=== PATIENT | female | born 1950 ===

== ENCOUNTER 2016-10-13 19:37 | Observation (INO) | payer MEDICARE, MEDICAID ==
[2016-10-13] MEDS ORDERED: Albuterol-Ipratrop 3 mg / 0.5 (3 ml) UD IH STA (20:03)
[2016-10-13] MEDS ORDERED: Oxycodone/Acetaminophen 5/325 mg Tab PO STA (20:03)
--- NOTE | 2016-10-13 20:15 | ED PDOC ---
Arrival/HPI <Héctor Gallo - Last Filed: 10/14/16 00:09> - General Historian: Patient - History of Present Illness Time/Duration: Prior to Arrival Symptom Onset: Sudden Symptom Course: Unchanged Context: Home <Tyesha Dominguez - Last Filed: 10/14/16 19:14> - General Chief Complaint: Respiratory Distress Time Seen by Provider: 10/13/16 19:38 - History of Present Illness Narrative History of Present Illness (Text): 10/13/16 20:08 66 yo female with PMH of asthma, HTN, ESRD on HD (M,W,F), DM, and CAD s/p bypass presented to ED with SOB. She states that her SOB started yesterday and occurs at rest. She states that previous episodes of SOB have been due to fluid overload when to little fluid was removed during HD. Patient also reports dry , mild cough and sore throat. She also reports chronic back pain and pain in bilateral legs due to diabetic neuropathy. She denies headache, fevers, chest pain, abd pain, n/v/d/c, no urinary symptoms. PMD: Dr. Milton (Tyesha Dominguez) Past Medical History - Provider Review Nursing Documentation Reviewed: Yes - Infectious Disease Hx of Infectious Diseases: None - Tetanus Immunization Tetanus Immunization: Unknown - Cardiac Hx Cardiac Disorders: Yes (cabg, dvt) Hx Congestive Heart Failure: Yes Hx Hypertension: Yes - Pulmonary Hx Chronic Obstructive Pulmonary Disease (COPD): Yes - Neurological HX Cerebrovascular Accident: Yes - HEENT Hx HEENT Disorder: No - Renal Hx Renal Failure: Yes - Endocrine/Metabolic Hx Diabetes Mellitus Type 2: Yes - Hematological/Oncological Hx Blood Disorders: Yes Hx Anemia: Yes - Integumentary Other/Comment: cellulitis right heel, [id number] x4cm open heel wound foul smelling drainage, wound bed red surrounded by brown dry discolored skin covered with silvacell, dry 2cm x 2cm scab, multiple eccymotic areas. to abd + 3 edema to ble as per prior hx, dressing to left heel skin reddened, r foot discolored dry flakey skin - Musculoskeletal/Rheumatological Hx Falls: Yes - Gastrointestinal Hx Gastrointestinal Disorders: Yes Hx Gastroesophageal Reflux: Yes - Genitourinary/Gynecological Hx Genitourinary Disorders: Yes (oliguria) Hx Incontinence: Yes - Psychiatric Hx Psychophysiologic Disorder: No Hx Substance Use: No - Surgical History Hx Appendectomy: Yes Hx Cholecystectomy: Yes Hx Open Heart Surgery: Yes - Anesthesia Hx Anesthesia: Yes Hx Anesthesia Reactions: No Hx Malignant Hyperthermia: No - Suicidal Assessment Feels Threatened In Home Enviroment: No <Tyesha Dominguez - Last Filed: 10/14/16 19:14> Family/Social History - Physician Review Nursing Documentation Reviewed: Yes Family/Social History: No Known Family HX Smoking Status: Former Smoker Hx Alcohol Use: No Hx Substance Use: No Hx Substance Use Treatment: No <Tyesha Dominguez - Last Filed: 10/14/16 19:14> Allergies/Home Meds <Héctor Gallo - Last Filed: 10/14/16 00:09> <Sharif Domingueziha - Last Filed: 10/14/16 19:14> Allergies/Adverse Reactions: Allergies Penicillins Allergy (Verified 11/13/15 06:20) hives Home Medications: Home Meds Medication Instructions Recorded Confirmed D-Methorphan/PE/Acetaminophen 2 tab PO Q6 PRN 10/13/16 10/13/16 [Mapap Cold Formula Caplet] Gabapentin [Neurontin] 100 mg PO BID 10/13/16 10/13/16 Ibuprofen [Motrin Tab] 400 mg PO Q6 PRN 10/13/16 10/13/16 Insulin Detemir [Levemir] 20 units SC BID 10/13/16 10/13/16 Metoprolol Tartrate [Lopressor] 25 mg PO DAILY 10/13/16 10/13/16 Sevelamer Carbonate [Renvela] 800 mg PO TID 10/13/16 10/13/16 predniSONE [predniSONE Tab] 20 mg PO DAILY 10/13/16 10/13/16 Review of Systems - Review of Systems Constitutional: Normal. absent: Fatigue, Fevers Eyes: Normal. absent: Vision Changes ENT: Sore Throat. absent: Rhinorrhea, Sinus Congestion Respiratory: SOB, Cough Cardiovascular: Normal. absent: Chest Pain, Edema, Calf Pain, Syncope Gastrointestinal: Normal. absent: Abdominal Pain, Constipation, Diarrhea, Nausea, Vomiting Genitourinary Female: Normal, Other (decrease urination due to ESRD). absent: Dysuria, Frequency Musculoskeletal: Arthralgias, Back Pain. absent: Myalgias Skin: Normal. absent: Rash, Pruritis, Laceration Neurological: Normal. absent: Headache, Dizziness Endocrine: Normal. absent: Diaphoresis Hemo/Lymphatic: Normal. absent: Easy Bleeding, Easy Bruising Psychiatric: Normal <Tyesha Dominguez - Last Filed: 10/14/16 19:14> Physical Exam Vital Signs Reviewed: Yes Temperature: Afebrile Blood Pressure: Hypertensive Pulse: Regular Respiratory Rate: Normal Appearance: Positive for: Well-Appearing, Non-Toxic, Comfortable Pain Distress: None Mental Status: Positive for: Alert and Oriented X 3 <Héctor Gallo - Last Filed: 10/14/16 00:09> - Systems Exam Head: Present: Atraumatic, Normocephalic. No: Abrasion, Laceration Pupils: Present: PERRL. No: Non-Reactive, Pinpoint Extroacular Muscles: Present: EOMI. No: Gaze Palsy, Entrapment Conjunctiva: Present: Normal Mouth: Present: Moist Mucous Membranes Pharnyx: Present: Normal. No: ERYTHEMA, EXUDATE, TONSILS ENLARGED Neck: Present: Normal Range of Motion Respiratory/Chest: Present: Clear to Auscultation, Good Air Exchange, Wheezes, Tachypneic. No: Respiratory Distress, Accessory Muscle Use, Rales, Rhonchi Cardiovascular: Present: Regular Rate and Rhythm, Normal S1, S2. No: Murmurs, Tachycardic, Bradycardic Abdomen: Present: Normal Bowel Sounds. No: Tenderness, Distention, Peritoneal Signs Back: Present: Paraspinal Tenderness Upper Extremity: Present: Normal Inspection, NORMAL PULSES. No: Cyanosis, Edema , Tenderness, Swelling Lower Extremity: Present: Normal Inspection. No: Edema, CALF TENDERNESS, Tenderness Neurological: Present: GCS=15, CN II-XII Intact, Speech Normal Skin: Present: Warm, Dry, Normal Color. No: Rashes, Diaphoretic, Hot, Cold, Pale Psychiatric: Present: Alert, Oriented x 3, Normal Insight, Normal Concentration <Tyesha Dominguez - Last Filed: 10/14/16 19:14> Vital Signs Temp Pulse Resp BP Pulse Ox 10/14/16 06:59 98 F 71 18 130/68 10/14/16 05:45 71 16 130/68 99 10/14/16 03:39 77 16 133/63 99 10/14/16 00:43 80 14 150/84 100 10/13/16 21:40 85 20 169/79 H 100 10/13/16 20:01 99 10/13/16 19:46 98.1 F 80 26 H 181/76 H 97 Medical Decision Making <Héctor Gallo - Last Filed: 10/14/16 00:09> <Tyesha Dominguez - Last Filed: 10/14/16 19:14> ED Course and Treatment: 10/13/16 21:29 Patient Seen With Resident: In agreement with resident note which contains more details about the patient. Patient was seen and evaluated with resident. Came up with plan and treatment together. Patient is a 66 year old female who presents to the emergency department for evaluation of shortness of breath. Addition HPI details as noted by resident. Labs, EKG, Chest X-ray ordered to r/o asthma exacerbation vs. CHF exacerbation. Duoneb and Percocet given for symptomatic control. 10/14/16 00:04 Case discussed with , who is aware and agrees with the plan to observe patient at telemetry for asthma. Accepts patient under service. ( Héctor Gallo) 10/13/16 20:18 Impression: 66 yo female with PMH of asthma, HTN, ESRD on HD (M,W,F), DM, and CAD s/p bypass presented to ED with SOB. Differential diagnoses includes but not limited to: - asthma exacerbation, CHF exacerbation Plan: - CBC, CMP - EKG - CXR - duoneb - percocet - Patient received solu-medrol and 1 duoneb treatment in route by EMS. She states her breathing has improved mildly. (Tyesha Dominguez) - Lab Interpretations Lab Results: 10/13/16 22:20 10/13/16 22:20 Lab Results 10/13/16 22:20: Sodium 137, Potassium 5.6 H*, Chloride 96 L, Carbon Dioxide 28, Anion Gap 19, BUN 35 H, Creatinine 5.8 H, Est GFR ( Amer) 9, Est GFR (Non -Af Amer) 7, Random Glucose 254 H, Calcium 9.6, Total Bilirubin 1.6 H, AST 35, ALT 26, Alkaline Phosphatase 56, Lactate Dehydrogenase 1014 H, Total Creatine Kinase 71, Troponin I 0.04 D, Total Protein 7.8, Albumin 4.2, Globulin 3.5, Albumin/Globulin Ratio 1.2 10/13/16 22:20: WBC 9.3, RBC 4.03, Hgb 11.9 L, Hct 35.9 L, MCV 89.1, MCH 29.5, MCHC 33.1, RDW 14.9 H, Plt Count 155, MPV 10.7, Neutrophils % (Manual) 87 H, Band Neutrophils % 4 H, Lymphocytes % (Manual) 8 L, Monocytes % (Manual) 1, Platelet Evaluation Normal - RAD Interpretation Radiology Orders: 10/13/16 20:03 CHEST PORTABLE [RAD] Stat - Medication Orders Current Medication Orders: Albuterol/Ipratropium (Duoneb 3 Mg/0.5 Mg (3 Ml) Ud) 3 ml IH Q4H PRN PRN Reason: Shortness of Breath Oxycodone/Acetaminophen (Percocet 5/325 Mg Tab) 1 tab PO Q4H PRN PRN Reason: Pain, moderate (4-7) Stop: 10/16/16 23:46 Vitamin B Complex/Vit C/Folic Acid (Nephro-Gabe) 1 tab PO 0800 JOSE Discontinued Medications Albuterol/Ipratropium (Duoneb 3 Mg/0.5 Mg (3 Ml) Ud) 3 ml IH Q15M STA Stop: 10/13/16 20:04 Last Admin: 10/13/16 20:40 Dose: 3 ml Oxycodone/Acetaminophen (Percocet 5/325 Mg Tab) 1 tab PO STAT STA Stop: 10/13/16 20:04 Last Admin: 10/13/16 20:42 Dose: 1 tab Re-Assess: ABHI Pain Assessment Document 10/13/16 21:42 HD (Rec: 10/14/16 07:36 HD [id number]) Pain Reassessment Is this a pain reassessment? Yes Sleep Is patient sleeping during reassessment? No Presence of Pain Presence of Pain No - PA / GERIATRIC NURSE / Resident Statement /DO has reviewed & agrees with the documentation as recorded. /DO has examined the patient and agrees with the treatment plan. <Héctor Gallo - Last Filed: 10/14/16 00:09> <Tyesha Dominguez - Last Filed: 10/14/16 19:14> - Scribe Statement [place] Rice Provider Alirio Attestation: All medical record entries made by the Tatyanaibe were at my direction and personally dictated by me. I have reviewed the chart and agree that the record accurately reflects my personal performance of the history, physical exam, medical decision making, and the department course for this patient. I have also personally directed, reviewed, and agree with the discharge instructions and disposition. (Héctor Gallo) Disposition/Present on Arrival <Héctor Gallo - Last Filed: 10/14/16 00:09> - Present on Arrival Any Indicators Present on Arrival: Yes History of DVT/PE: No History of Uncontrolled Diabetes: Yes Urinary Catheter: No History of Decub. Ulcer: No History Surgical Site Infection Following: None - Disposition Have Diagnosis and Disposition been Completed?: Yes Disposition Time: 23:44 Patient Plan: Admission <Tyesha Dominguez - Last Filed: 10/14/16 19:14> - Disposition Diagnosis: Asthma exacerbation Disposition: HOSPITALIZED Condition: FAIR
[2016-10-13 22:40] LABS: HEMATOCRIT 35.9 % (36.0-48.0); MEAN CELL VOLUME 89.1 fL (80.0-105.0); MEAN CORPUSCULAR HEMOGLOBIN 29.5 pg (25.0-35.0); MEAN CORPUSCULAR HGB CONC 33.1 g/dl (31.0-37.0); MEAN PLATELET VOLUME 10.7 fl (7.0-11.0); PLATELET COUNT 155 10^3/uL (120.0-450.0); RED CELL DISTRIBUTION WIDTH 14.9 % (11.5-14.5); WHITE BLOOD COUNT 9.3 10^3/ul (4.5-11.0)
[2016-10-13 22:57] LABS: ALB/GLOB RATIO 1.2 (1.1-1.8); BILIRUBIN,TOTAL 1.6 mg/dL (0.2-1.3); CALCIUM 9.6 mg/dL (8.4-10.5); TOTAL PROTEIN 7.8 g/dL (5.8-8.3)
[2016-10-13 23:08] LABS: TROPONIN I 0.04 ng/mL
[2016-10-13 23:10] LABS: ADD MANUAL DIFF? YES
[2016-10-13 23:14] LABS: POTASSIUM 5.6 mmol/L (3.6-5.0)
[2016-10-13 23:24] LABS: BAND 4 % (0-2); NEUTROPHIL 87 % (50.0-70.0); PLATELET ESTIMATE NORMAL (NORMAL)
[2016-10-13] MEDS ORDERED: Oxycodone/Acetaminophen 5/325 mg Tab PO PRN (23:45)
[2016-10-13] MEDS ORDERED: Albuterol-Ipratrop 3 mg / 0.5 (3 ml) UD IH PRN (23:45)
[2016-10-14 03:40] VITALS: O2SAT 99
[2016-10-14 05:46] VITALS: BP 130/68; PULSE 71
--- NOTE | 2016-10-14 09:39 | RAD ---
HISTORY: Shortness of breath COMPARISON: 04/26/2016 FINDINGS: LUNGS: There is interval improved aeration in both lungs with residual mild pulmonary venous congestion and interstitial pulmonary edema. PLEURA: No large pleural effusion. Small left pleural effusion, likely loculated. CARDIOVASCULAR: There is persistent moderate cardiomegaly. Status post CABG. OSSEOUS STRUCTURES: No significant abnormalities. VISUALIZED UPPER ABDOMEN: Normal. OTHER FINDINGS: None. IMPRESSION: 1. Interval improved aeration in both lungs with mild residual pulmonary venous congestion and interstitial pulmonary edema. 2. Small left pleural effusion, likely loculated. 3. Moderate cardiomegaly.
--- NOTE | 2016-10-14 11:52 | CP.PCM.CON ---
History of Present Illness - History of Present Illness History of Present Illness: nephrology note covering for Dr Suh She was seen and examined plan for HD today as ordered Past Patient History - Infectious Disease Hx of Infectious Diseases: None - Tetanus Immunizations Tetanus Immunization: Unknown - Past Medical History & Family History Past Medical History?: Yes - Past Social History Smoking Status: Former Smoker - CARDIAC Hx Cardiac Disorders: Yes (cabg, dvt) Hx Congestive Heart Failure: Yes Hx Hypertension: Yes - PULMONARY Hx Chronic Obstructive Pulmonary Disease (COPD): Yes - NEUROLOGICAL HX Cerebrovascular Accident: Yes - HEENT Hx HEENT Problems: No - RENAL Hx Renal Failure: Yes - ENDOCRINE/METABOLIC Hx Diabetes Mellitus Type 2: Yes - HEMATOLOGICAL/ONCOLOGICAL Hx Blood Disorders: Yes Hx Anemia: Yes - INTEGUMENTARY Other/Comment: cellulitis right heel, [id number] x4cm open heel wound foul smelling drainage, wound bed red surrounded by brown dry discolored skin covered with silvacell, dry 2cm x 2cm scab, multiple eccymotic areas. to abd + 3 edema to ble as per prior hx, dressing to left heel skin reddened, r foot discolored dry flakey skin - MUSCULOSKELETAL/RHEUMATOLOGICAL Hx Falls: Yes - GASTROINTESTINAL Hx Gastrointestinal Disorders: Yes Hx Gastroesophageal Reflux: Yes - GENITOURINARY/GYNECOLOGICAL Hx Genitourinary Disorders: Yes (oliguria) Hx Incontinence: Yes - PSYCHIATRIC Hx Psychophysiologic Disorder: No Hx Substance Use: No - SURGICAL HISTORY Hx Appendectomy: Yes Hx Cholecystectomy: Yes Hx Open Heart Surgery: Yes - ANESTHESIA Hx Anesthesia: Yes Hx Anesthesia Reactions: No Hx Malignant Hyperthermia: No Meds Allergies/Adverse Reactions: Allergies Allergy/AdvReac Type Severity Reaction Status Date / Time Penicillins Allergy hives Verified 11/13/15 06:20 - Medications Medications: Current Medications Albuterol/Ipratropium (Duoneb 3 Mg/0.5 Mg (3 Ml) Ud) 3 ml IH Q4H PRN PRN Reason: Shortness of Breath Oxycodone/Acetaminophen (Percocet 5/325 Mg Tab) 1 tab PO Q4H PRN PRN Reason: Pain, moderate (4-7) Stop: 10/16/16 23:46 Vitamin B Complex/Vit C/Folic Acid (Nephro-Gabe) 1 tab PO 0800 JOSE Results - Vital Signs Recent Vital Signs: Last Vital Signs Temp 98.1 F 10/13/16 19:46 Pulse 71 10/14/16 05:45 Resp 16 10/14/16 05:45 BP 130/68 10/14/16 05:45 Pulse Ox 99 10/14/16 05:45 - Labs Result Diagrams: 10/13/16 22:20 10/13/16 22:20
[2016-10-14 15:18] LABS: HEMATOCRIT 31.8 % (36.0-48.0); MEAN CELL VOLUME 88.8 fL (80.0-105.0); MEAN CORPUSCULAR HEMOGLOBIN 29.3 pg (25.0-35.0); MEAN PLATELET VOLUME 10.4 fl (7.0-11.0); RED CELL DISTRIBUTION WIDTH 14.5 % (11.5-14.5); WHITE BLOOD COUNT 8.2 10^3/ul (4.5-11.0)
[2016-10-14 15:30] LABS: ALB/GLOB RATIO 1.3 (1.1-1.8); BILIRUBIN,TOTAL 0.6 mg/dL (0.2-1.3); CALCIUM 9.3 mg/dL (8.4-10.5); MAGNESIUM 2.3 mg/dL (1.7-2.2); PHOSPHOROUS 7.5 mg/dL (2.5-4.5); POTASSIUM 5.1 mmol/L (3.6-5.0); TOTAL PROTEIN 6.5 g/dL (5.8-8.3)
--- NOTE | 2016-10-14 16:02 | CARD ---
APPROVED REPORT EKG Measurement Heart [id number] <Conclusion> Sinus rhythm with 1st degree AV block ST & T wave abnormality, consider inferolateral ischemia Prolonged QT Abnormal ECG
[2016-10-14 16:16] VITALS: RESP 18; TEMP 98; BMI 26.0
[2016-10-15] MEDS ORDERED: Multivitamin Vitamin B Complex (Nephro-Vite) Tab PO SCH (08:00)
--- NOTE | 2016-10-15 08:28 | HP ---
HISTORY OF PRESENT ILLNESS: The patient is a 66-year-old female known to me from multiple previous a dmissions. The patient stated yesterday all of a sudden she became short of breath. Denies any chest pain. Did have hypertension daughter came to . She found her short of breath so she marin d an ambulance and was brought to the emergency room. She came to the emergency room with increasing shortness of breath. She denies any nausea or vomiting. Does complain of generalized body aches and leg pain and foot pain. PAST MEDICAL HISTORY: Significant for open heart surgery coronary artery disease on hemo dialysis, history of chronic that has been insulin dependent diabetes mellitus, hyp erlipidemia, chronic degenerative disk disease. ALLERGIES: THE PATIENT IS ALLERGIC TO PENICILLIN. MEDICATIONS AT HOME: She is on a day, prednisone mg daily, Renvela 800 mg 3 times a day, metoprolol 25 daily, ibuprofen 400 q. 8 hours p.r.n. mg twice a day. ASSESSMENT AND PLAN: 1. Probably fluid overload. The patient dialysis. 2. Hypertension. 3. . 4. Hyperlipidemia. 5. Insulin dependent diabetes mellitus. The patient will receive dialysis . If the patien t remains stable, she will be discharged later on today. The patient was discharged later on today. Henry Milton MD cc: [phone] TT: 10/14/2016 20:18:12 ln
== END 2016-10-14 21:31 | disposition home or self-care (01) ==
LOC: ED 19:37 → ERH 23:44 → CCU 10-14 07:13
PROVIDERS: ADMIT Internal Medicine; ATTEND Internal Medicine
DX: J45.901 Unspecified asthma with (acute) exacerbation (principal); I12.0 Hypertensive chronic kidney disease with stage 5 chronic kidney disease or end stage renal disease; N18.6 End stage renal disease; E11.22 Type 2 diabetes mellitus with diabetic chronic kidney disease; I25.10 Atherosclerotic heart disease of native coronary artery without angina pectoris; E78.5 Hyperlipidemia, unspecified; J44.9 Chronic obstructive pulmonary disease, unspecified; M51.9 Unspecified thoracic, thoracolumbar and lumbosacral intervertebral disc disorder; Z99.2 Dependence on renal dialysis; Z87.891 Personal history of nicotine dependence; Z79.4 Long term (current) use of insulin; Z88.0 Allergy status to penicillin
CPT/HCPCS: 71010; 80053; 82550; 82948; 83615; 83735; 84100; 84484; 85025; 85027; 93005; 99285; G0378

== ENCOUNTER 2016-11-01 21:22 | Observation (INO) | payer MEDICARE, MEDICAID ==
--- NOTE | 2016-11-01 21:27 | ED PDOC ---
Arrival/HPI - General Time Seen by Provider: 11/01/16 21:26 Historian: Patient - History of Present Illness Narrative History of Present Illness (Text): 11/01/16 21:27 Renea Jauregui is a 66 year old female, whose past medical history includes CABG , CAD, IDDM, hyperlipidemia, ESRD with hemodialysis on /W/, and asthma, who presents to the Emergency department brought in by EMS complaining of worsening shortness of breath tonight. Patient reports associated cough. Patient states she is scheduled for hemodialysis tomorrow. Patient denies any nausea, vomiting , diarrhea, urinary symptoms, back pain, neck pain, headache, dizziness, or any other complaints. PMD: Dr. Milton Symptom Onset: Gradual Symptom Course: Worsening Activities at Onset: Rest, Light Context: Home Past Medical History - Provider Review Nursing Documentation Reviewed: Yes - Infectious Disease Hx of Infectious Diseases: None - Tetanus Immunization Tetanus Immunization: Unknown - Cardiac Hx Cardiac Disorders: Yes (cabg, dvt) Hx Congestive Heart Failure: Yes Hx Hypertension: Yes - Pulmonary Hx Chronic Obstructive Pulmonary Disease (COPD): Yes - Neurological HX Cerebrovascular Accident: Yes - HEENT Hx HEENT Disorder: No - Renal Hx Renal Failure: Yes - Endocrine/Metabolic Hx Diabetes Mellitus Type 2: Yes - Hematological/Oncological Hx Blood Disorders: Yes Hx Anemia: Yes - Integumentary Other/Comment: cellulitis right heel, [id number] x4cm open heel wound foul smelling drainage, wound bed red surrounded by brown dry discolored skin covered with silvacell, dry 2cm x 2cm scab, multiple eccymotic areas. to abd + 3 edema to ble as per prior hx, dressing to left heel skin reddened, r foot discolored dry flakey skin - Musculoskeletal/Rheumatological Hx Falls: Yes - Gastrointestinal Hx Gastrointestinal Disorders: Yes Hx Gastroesophageal Reflux: Yes - Genitourinary/Gynecological Hx Genitourinary Disorders: Yes (oliguria) Hx Incontinence: Yes - Psychiatric Hx Psychophysiologic Disorder: No Hx Substance Use: No - Surgical History Hx Appendectomy: Yes Hx Cholecystectomy: Yes Hx Open Heart Surgery: Yes - Anesthesia Hx Anesthesia: Yes Hx Anesthesia Reactions: No Hx Malignant Hyperthermia: No - Suicidal Assessment Feels Threatened In Home Enviroment: No Family/Social History - Physician Review Nursing Documentation Reviewed: Yes Family/Social History: Unknown Family HX Smoking Status: Former Smoker Hx Alcohol Use: No Hx Substance Use: No Hx Substance Use Treatment: No Allergies/Home Meds Allergies/Adverse Reactions: Allergies Penicillins Allergy (Verified 11/01/16 21:23) hives Home Medications: Home Meds Medication Instructions Recorded Confirmed D-Methorphan/PE/Acetaminophen 2 tab PO Q6 PRN 10/13/16 11/01/16 [Mapap Cold Formula Caplet] Gabapentin [Neurontin] 100 mg PO BID 10/13/16 11/01/16 Ibuprofen [Motrin Tab] 400 mg PO Q6 PRN 10/13/16 11/01/16 Insulin Detemir [Levemir] 20 units SC BID 10/13/16 11/01/16 Metoprolol Tartrate [Lopressor] 25 mg PO DAILY 10/13/16 11/01/16 Sevelamer Carbonate [Renvela] 800 mg PO TID 10/13/16 11/01/16 Albuterol 0.083% [Albuterol 0.083% 1 inh NEB PRN PRN 11/01/16 11/01/16 Inhal Raquel (2.5 mg/3 ml) UD] Rosuvastatin Calcium [Crestor] 10 mg PO DAILY 11/01/16 11/01/16 Review of Systems - Physician Review All systems were reviewed & negative as marked: Yes - Review of Systems Constitutional: Normal. absent: Fevers Eyes: Normal ENT: Normal Respiratory: SOB, Cough Cardiovascular: Normal. absent: Chest Pain Gastrointestinal: Normal. absent: Abdominal Pain, Diarrhea, Nausea, Vomiting Genitourinary Female: Normal. absent: Dysuria, Frequency, Hematuria, Urine Output Changes Musculoskeletal: Normal Skin: Normal Neurological: Normal. absent: Headache, Dizziness Endocrine: Normal Hemo/Lymphatic: Normal Psychiatric: Normal Physical Exam Vital Signs Reviewed: Yes Vital Signs Temp Pulse Resp BP Pulse Ox 11/02/16 00:13 65 17 161/62 H 100 11/01/16 21:35 22 11/01/16 21:32 94 L 11/01/16 21:31 98.3 F 78 24 155/90 H 88 L Temperature: Afebrile Blood Pressure: Hypertensive Pulse: Regular Respiratory Rate: Normal Appearance: Positive for: Well-Appearing, Non-Toxic, Comfortable Pain Distress: None Mental Status: Positive for: Alert and Oriented X 3 - Systems Exam Head: Present: Atraumatic, Normocephalic Pupils: Present: PERRL Extroacular Muscles: Present: EOMI Conjunctiva: Present: Normal Mouth: Present: Moist Mucous Membranes Neck: Present: Normal Range of Motion Respiratory/Chest: Present: Rhonchi. No: Respiratory Distress, Accessory Muscle Use Cardiovascular: Present: Regular Rate and Rhythm, Normal S1, S2. No: Murmurs Abdomen: Present: Normal Bowel Sounds. No: Tenderness, Distention, Peritoneal Signs Back: Present: Normal Inspection Upper Extremity: Present: Normal Inspection. No: Cyanosis, Edema Lower Extremity: Present: Normal Inspection. No: Edema Neurological: Present: GCS=15, CN II-XII Intact, Speech Normal Skin: Present: Warm, Dry, Normal Color. No: Rashes Psychiatric: Present: Alert, Oriented x 3, Normal Insight, Normal Concentration Medical Decision Making ED Course and Treatment: 11/01/16 21:27 Impression: 66 year old female complaining of shortness of breath and cough tonight. Differential Diagnosis included but are not limited to: COPD vs. pneumonia vs. CHF Plan: -- EKG -- Chest X-ray -- Labs, VBG, cardiac enzymes, BNP, blood cultures -- Reassess and disposition Prior Visits: Notes and results from previous visits were reviewed. On 10/13/2016, pt was seen in the Emergency department for shortness of breath, cough, and sore throat. Pt was admitted for further evaluation. Progress Notes: Reviewed EKG, sinus rhythm at 73 bpm. 1st degree AV block. Non-specific ST/T wave changes. 11/01/16 22:58 Reviewed radiology, Chest X-ray shows cardiomegaly and mild CHF. 11/01/16 23:[address] Milton, who is aware and agrees with plan. Accepts pt in to her service. Pt will go to Telemetry observation for COPD. - Lab Interpretations Microbiology Results: Microbiology Results 11/01/16 21:50 Blood-Venous Blood Culture - Preliminary NO GROWTH AFTER 24 HOURS 11/01/16 21:35 Blood-Venous Blood Culture - Preliminary NO GROWTH AFTER 24 HOURS Lab Results: 11/01/16 21:35 11/01/16 21:35 Lab Results 11/01/16 21:35: Sodium 141, Chloride 95 L, Potassium 4.4, Carbon Dioxide 29, Anion Gap 21 H, BUN 48 H, Creatinine 7.4 H, Est GFR ( Amer) 7, Est GFR ( Non-Af Amer) 6, Random Glucose 252 H, Calcium 9.3, Total Bilirubin 0.8, AST 20, ALT 29, Alkaline Phosphatase 55, Lactate Dehydrogenase 559, Total Creatine Kinase 66, Troponin I 0.03 D, NT-Pro-B Natriuret Pep 86962 H, Total Protein 7.0 , Albumin 3.9, Globulin 3.0, Albumin/Globulin Ratio 1.3 11/01/16 21:35: pO2 37, VBG pH 7.38, VBG pCO2 57.0, VBG HCO3 33.7 H, VBG Total CO2 35.4 H, VBG O2 Sat (Calc) 66.7 H, VBG Base Excess 6.8 H, VBG Potassium 4.5, Sodium 140.0, Chloride 100.0, Glucose 266 H, Lactate 1.5, FiO2 21.0, Venous Blood Potassium 4.5 11/01/16 21:35: WBC 9.3, RBC 3.68, Hgb 10.7 L, Hct 33.3 L, MCV 90.5, MCH 29.1, MCHC 32.1, RDW 15.3 H, Plt Count 177, MPV 10.6, Gran % 65.0, Lymph % (Auto) 25.0 , [place] % (Auto) 7.9 H, Eos % (Auto) 1.9, Baso % (Auto) 0.2, Gran # 6.04, Lymph # 2.3, [place] # 0.7 H, Eos # 0.2, Baso # 0.02 I have reviewed the lab results: Yes - RAD Interpretation Radiology Orders: 11/01/16 21:28 CHEST PORTABLE [RAD] Stat Personnel Research Psychologist: ED Physician - EKG Interpretation Interpreted by ED Physician: Yes Type: 12 lead EKG - Medication Orders Current Medication Orders: Discontinued Medications Amlodipine Besylate (Norvasc) 10 mg PO DAILY [facility] Last Admin: 11/02/16 10:43 Dose: Not Given Non-Admin Reason: Patient Refused Amlodipine Besylate (Norvasc) 10 mg PO DAILY [facility] Stop: 11/02/16 09:41 Last Admin: 11/02/16 10:43 Dose: Not Given Non-Admin Reason: Patient Refused Amlodipine Besylate (Norvasc) 10 mg PO DAILY [facility] Stop: 11/02/16 18:29 Last Admin: 11/02/16 18:55 Dose: 10 mg Aspirin (Ecotrin) 81 mg PO DAILY [facility] Atorvastatin Calcium (Lipitor) 40 mg PO DIN [facility] Last Admin: 11/02/16 17:55 Dose: 40 mg Gabapentin (Neurontin) 100 mg PO BID [facility] PRN Reason: Protocol Last Admin: 11/02/16 17:55 Dose: Not Given Non-Admin Reason: Patient Refused Insulin Detemir (Levemir) 20 unit SC BID [facility] Last Admin: 11/02/16 17:55 Dose: 20 unit Insulin Human Lispro (Humalog Med) 0 units SC ACHS [facility] PRN Reason: Protocol Last Admin: 11/02/16 17:55 Dose: 3 units Levalbuterol HCl (Xopenex) 1.25 mg IH [id number] [facility] Last Admin: 11/02/16 19:41 Dose: 1.25 mg Metoprolol Tartrate (Lopressor) 25 mg PO DAILY [facility] Last Admin: 11/02/16 10:42 Dose: Not Given Non-Admin Reason: Patient Refused Naloxone HCl (Narcan) Confirm Administered Dose 0.4 mg .ROUTE .STK-MED ONE Stop: 11/02/16 01:02 Last Admin: 11/02/16 01:05 Dose: Sevelamer HCl (Renagel) 800 mg PO TID [facility] Last Admin: 11/02/16 17:54 Dose: 800 mg - Scribe Statement The provider has reviewed the documentation as recorded by the Alirio Kee All medical record entries made by the Tatyanaibchloe were at my direction and personally dictated by me. I have reviewed the chart and agree that the record accurately reflects my personal performance of the history, physical exam, medical decision making, and the department course for this patient. I have also personally directed, reviewed, and agree with the discharge instructions and disposition. Disposition/Present on Arrival - Present on Arrival Any Indicators Present on Arrival: No History of DVT/PE: No History of Uncontrolled Diabetes: Yes Urinary Catheter: No History Surgical Site Infection Following: None - Disposition Have Diagnosis and Disposition been Completed?: Yes Diagnosis: COPD (chronic obstructive pulmonary disease) Disposition: HOSPITALIZED Disposition Time: 23:45 Condition: FAIR
[2016-11-01 21:51] LABS: BASO # 0.02 K/mm3 (0.0-2.0); BASO % 0.2 % (0.0-3.0); EOS # 0.2 (0.0-0.7); EOS % 1.9 % (1.5-5.0); GRAN # 6.04 (1.4-6.5); HEMOGLOBIN 10.7 gm/dL (12.0-16.0); LYMPH # 2.3 (1.2-3.4); MEAN CELL VOLUME 90.5 fL (80.0-105.0); MEAN CORPUSCULAR HEMOGLOBIN 29.1 pg (25.0-35.0); MEAN CORPUSCULAR HGB CONC 32.1 g/dl (31.0-37.0); MEAN PLATELET VOLUME 10.6 fl (7.0-11.0); MONO # 0.7 (0.1-0.6); MONO % 7.9 % (1.0-6.0); PLATELET COUNT 177 10^3/uL (120.0-450.0); RBC 3.68 10^6/uL (3.5-6.1); RED CELL DISTRIBUTION WIDTH 15.3 % (11.5-14.5); WHITE BLOOD COUNT 9.3 10^3/ul (4.5-11.0)
[2016-11-01 21:56] LABS: VENOUS BLOOD GAS BASE EXCESS 6.8 mmol/L (0.0-2.0); VENOUS BLOOD GAS PO2 37 mm/Hg (30-55); VENOUS BLOOD PH 7.38 (7.32-7.43)
[2016-11-01 22:07] LABS: ALB/GLOB RATIO 1.3 (1.1-1.8); ALBUMIN 3.9 g/dL (3.0-4.8); CALCIUM 9.3 mg/dL (8.4-10.5)
[2016-11-01 22:19] LABS: TROPONIN I 0.03 ng/mL
[2016-11-02] MEDS ORDERED: Naloxone 0.4 mg/ml Inj (Adult) ONE (01:01)
[2016-11-02 01:17] LABS: ARTERIAL BLOOD GAS HCO3 27.9 mmol/L (21-28); ARTERIAL BLOOD GAS HEMOGLOBIN 10.2 g/dL (11.7-17.4); ARTERIAL BLOOD GAS O2 CAPACITY 13.9 mL/dl (16-24); ARTERIAL BLOOD GAS O2 CONTENT 12.2 ML/dl (15-23); ARTERIAL BLOOD GAS O2 SAT 87.8 % (95-98); ARTERIAL BLOOD GAS PCO2 42 mm/Hg (35-45); ARTERIAL BLOOD GAS PH 7.43 (7.35-7.45); ARTERIAL BLOOD GAS TCO2 29.2 mmol.L (22-28)
[2016-11-02 04:06] VITALS: RESP 18; BMI 31.6
[2016-11-02 07:17] VITALS: O2SAT 99
--- NOTE | 2016-11-02 08:42 | RAD ---
HISTORY: sob COMPARISON: Comparison chest 10/13/2016 FINDING: LUNGS: Central pulmonary vasculature is mildly congested in appearance with left-sided effusion. Questionable small right effusion. . Patchy opacity seen in the left mid to lower lung field could represent an area of atelectasis versus developing infiltrate. Additionally, there is a wedge-shaped density in the left upper lobe which may represent fluid in the fissure as well however the possibility of a localized infiltrate in the left upper lobe should be excluded as well. Minor right basilar atelectasis PLEURA: As above. No pneumothorax apparent. CARDIOVASCULAR: Sternotomy wires and CABG clips. Cardiomegaly. OSSEOUS STRUCTURES: No significant abnormalities. VISUALIZED UPPER ABDOMEN: Normal. OTHER FINDINGS: Note also made of a metallic clips in the right base of neck. . . Clinical correlation with surgical history. IMPRESSION: Mild central pulmonary vascular congestion with left-sided effusion and questionable small right effusion. . Patchy opacity seen in the left mid to lower lung field could represent of atelectasis versus developing infiltrate.Additionally, there is a wedge-shaped density in the left upper lobe which may represent fluid in the fissure as well however the possibility of a localized infiltrate in the left upper lobe should be excluded as well. Minor right basilar atelectasis.
--- NOTE | 2016-11-02 10:06 | CARD ---
APPROVED REPORT EKG Measurement Heart [id number] <Conclusion> Sinus rhythm with 1st degree AV block Cannot rule out Inferior infarct, age undetermined STTW changes Prolonged QTc No change
[2016-11-02] MEDS: Insulin Detemir 100 units/ml Vial (Levemir) SC SCH ×2 (10:37→17:55)
[2016-11-02 11:43] LABS: BASO # 0.03 K/mm3 (0.0-2.0); BASO % 0.4 % (0.0-3.0); EOS # 0.2 (0.0-0.7); EOS % 2.2 % (1.5-5.0); GRAN # 5.83 (1.4-6.5); GRAN % 69.9 % (50.0-68.0); HEMOGLOBIN 10.4 gm/dL (12.0-16.0); LYMPH # 1.7 (1.2-3.4); LYMPH % 20.7 % (22.0-35.0); MEAN CELL VOLUME 90.5 fL (80.0-105.0); MEAN CORPUSCULAR HEMOGLOBIN 29.1 pg (25.0-35.0); MEAN CORPUSCULAR HGB CONC 32.2 g/dl (31.0-37.0); MEAN PLATELET VOLUME 10.8 fl (7.0-11.0); MONO # 0.6 (0.1-0.6); MONO % 6.8 % (1.0-6.0); PLATELET COUNT 158 10^3/uL (120.0-450.0); RBC 3.57 10^6/uL (3.5-6.1); RED CELL DISTRIBUTION WIDTH 15.3 % (11.5-14.5); WHITE BLOOD COUNT 8.3 10^3/ul (4.5-11.0)
[2016-11-02 11:49] LABS: ALB/GLOB RATIO 1.3 (1.1-1.8); ALBUMIN 3.9 g/dL (3.0-4.8); CALCIUM 9.2 mg/dL (8.4-10.5); MAGNESIUM 2.5 mg/dL (1.7-2.2)
[2016-11-02] MEDS: Insulin Lispro (humaLOG) MEDIUM Coverage SC SCH ×2 (12:20→17:55)
[2016-11-02] MEDS: Levalbuterol 1.25 MG/3 ML Inhal Soln UD IH SCH ×2 (13:19→19:41)
[2016-11-02 18:54] VITALS: BP 182/63; PULSE 72; TEMP 98.5
[2016-11-02 19:16] LABS: TROPONIN I 0.02 ng/mL
--- NOTE | 2016-11-02 19:48 | CP.PCM.CON ---
History of Present Illness - History of Present Illness History of Present Illness: 66 yo F w/ pmh of htn, DM, CHF (w/ systolic dysfunction per previous note), CAD s/p CABG (2013), s/p CVA, COPD and ESRD on HD (MW, at [facility], under [facility]), presented to ED yesterday after developing sudden onset of shortness of breath; nephrology service being consulted for hemodialysis management; Patient reports waking up yesterday morning with shortness of breath and associated chest pain, the latter which subsided within a few minutes after taking sublingual nitro; she otherwise reports feeling well the day before; she denies any increased fluid intake or dietary salt indiscretion; Patient's last HD session was 3 days ago per routine with patient having left treatment at 80.9 kg, dry weight 81.5 kg. Review of Systems - Constitutional Constitutional: absent: Chills, Fever - EENT Eyes: absent: Change in Vision Ears: absent: Dizziness Nose/Mouth/Throat: absent: Sore Throat Additional comments: Decreased hearing on R (chronic); - Cardiovascular Cardiovascular: As Per HPI - Respiratory Respiratory: absent: Cough - Gastrointestinal Gastrointestinal: absent: Diarrhea, Vomiting - Integumentary Integumentary: absent: Pruritus, Rash - Neurological Neurological: Abnormal Gait, Disequilibrium Additional comments: Not able to walk steadily since CABG; - Psychiatric Psychiatric: Depression. absent: Anxiety - Hematologic/Lymphatic Hematologic: absent: Easy Bruising Past Patient History - Infectious Disease Hx of Infectious Diseases: None - Tetanus Immunizations Tetanus Immunization: Unknown - Past Medical History & Family History Past Medical History?: Yes Pertinent Family History: Sister - DM; ESRD on HD; - Past Social History Smoking Status: Former Smoker - CARDIAC Hx Cardiac Disorders: Yes Hx Angina: Yes Hx Cardia Arrhythmia: Yes Hx Circulatory Problems: No Hx Congestive Heart Failure: No Hx Heart Murmur: No Hx Heart Transplant: Yes Hx Hypercholesterolemia: No Hx Hypertension: Yes Hx Internal Defibrillator: No Hx Mitral Valve Prolapse: No Hx Pacemaker: No Hx Peripheral Edema: No Hx Peripheral Vascular Disease: No - PULMONARY Hx Respiratory Disorders: Yes Hx Chronic Obstructive Pulmonary Disease (COPD): Yes - NEUROLOGICAL HX Cerebrovascular Accident: Yes - HEENT Hx HEENT Problems: Yes Hx Deafness: Yes - RENAL Hx Chronic Kidney Disease: Yes Hx Dialysis: Yes - ENDOCRINE/METABOLIC Hx Endocrine Disorders: Yes Hx Diabetes Mellitus Type 2: Yes - HEMATOLOGICAL/ONCOLOGICAL Hx Blood Disorders: No - INTEGUMENTARY Hx Dermatological Problems: No - MUSCULOSKELETAL/RHEUMATOLOGICAL Hx Musculoskeletal Disorders: Yes Hx Back Pain: Yes Hx Falls: Yes Hx Osteoarthritis: Yes Hx Unsteady Gait: Yes - GASTROINTESTINAL Hx Gastrointestinal Disorders: No - GENITOURINARY/GYNECOLOGICAL Hx Genitourinary Disorders: No - PSYCHIATRIC Hx Substance Use: No - SURGICAL HISTORY Hx Surgeries: Yes Hx Cardiac Catheterization: Yes Hx Coronary Stent: No Hx Open Heart Surgery: Yes - ANESTHESIA Hx Anesthesia: Yes Hx Anesthesia Reactions: No Hx Malignant Hyperthermia: No Meds Allergies/Adverse Reactions: Allergies Allergy/AdvReac Type Severity Reaction Status Date / Time Penicillins Allergy hives Verified 11/01/16 21:23 - Medications Medications: Current Medications Amlodipine Besylate (Norvasc) 10 mg PO DAILY [facility] Last Admin: 11/02/16 10:43 Dose: Not Given Atorvastatin Calcium (Lipitor) 40 mg PO DIN [facility] Last Admin: 11/02/16 17:55 Dose: 40 mg Gabapentin (Neurontin) 100 mg PO BID [facility] PRN Reason: Protocol Last Admin: 11/02/16 17:55 Dose: Not Given Insulin Detemir (Levemir) 20 unit SC BID [facility] Last Admin: 11/02/16 17:55 Dose: 20 unit Insulin Human Lispro (Humalog Med) 0 units SC ACHS [facility] PRN Reason: Protocol Last Admin: 11/02/16 17:55 Dose: 3 units Levalbuterol HCl (Xopenex) 1.25 mg IH [id number] [facility] Last Admin: 11/02/16 13:19 Dose: Not Given Metoprolol Tartrate (Lopressor) 25 mg PO DAILY [facility] Last Admin: 11/02/16 10:42 Dose: Not Given Sevelamer HCl (Renagel) 800 mg PO TID [facility] Last Admin: 11/02/16 17:54 Dose: 800 mg Physical Exam - Constitutional Appears: Non-toxic, No Acute Distress - Head Exam Head Exam: NORMAL INSPECTION - Eye Exam Eye Exam: Scleral icterus - ENT Exam ENT Exam: Mucous Membranes Moist - Neck Exam Neck exam: Positive for: Normal Inspection. Negative for: Lymphadenopathy, Thyromegaly - Respiratory Exam Respiratory Exam: NORMAL BREATHING PATTERN. absent: Respiratory Distress Additional comments: Bilateral insp rales at bases; - Cardiovascular Exam Cardiovascular Exam: REGULAR RHYTHM, +S1, +S2 - GI/Abdominal Exam GI & Abdominal Exam: Soft. absent: Distended, Tenderness - Exam Exam: absent: Bladder Distension - Extremities Exam Extremities exam: Positive for: normal capillary refill Additional comments: Decreased but palpable b/l DP pulses; Mild bilateral lower leg edema; - Neurological Exam Neurological exam: Alert Additional comments: Unable to stand steadily; - Psychiatric Exam Psychiatric exam: Normal Affect, Normal Mood - Skin Skin Exam: Normal Color, Warm Results - Vital Signs Recent Vital Signs: Last Vital Signs Temp 98.5 F 11/02/16 18:00 Pulse 72 11/02/16 18:00 Resp 18 11/02/16 18:00 BP 182/63 H 11/02/16 18:55 Pulse Ox 99 11/02/16 06:00 - Labs Result Diagrams: 11/02/16 11:15 11/02/16 11:15 Labs: Laboratory Results - last 24 hr 11/02/16 11/02/16 11/02/16 00:40 01:14 07:57 WBC RBC Hgb Hct MCV MCH MCHC RDW Plt Count MPV Gran % Lymph % (Auto) [place] % (Auto) Eos % (Auto) Baso % (Auto) Gran # Lymph # [place] # Eos # Baso # pCO2 42 pO2 50.0 L HCO3 27.9 ABG pH 7.43 ABG Total CO2 29.2 H ABG O2 Saturation 87.8 L ABG O2 Content 12.2 L ABG Base Excess 3.2 H ABG Hemoglobin 10.2 L ABG Carboxyhemoglobin 2.4 H POC ABG HHb (Measured) 11.8 H ABG Methemoglobin 0.9 ABG O2 Capacity 13.9 L Hgb O2 Saturation 85.0 L FiO2 21.0 Sodium Potassium Chloride Carbon Dioxide Anion Gap BUN Creatinine Est GFR ( Amer) Est GFR (Non-Af Amer) POC Glucose (mg/dL) 260 H 271 H Random Glucose Calcium Phosphorus Magnesium Total Bilirubin AST ALT Alkaline Phosphatase Lactate Dehydrogenase Total Creatine Kinase Troponin I Total Protein Albumin Globulin Albumin/Globulin Ratio 11/02/16 11/02/16 11/02/16 11:15 11:15 11:15 WBC 8.3 RBC 3.57 Hgb 10.4 L Hct 32.3 L MCV 90.5 MCH 29.1 MCHC 32.2 RDW 15.3 H Plt Count 158 MPV 10.8 Gran % 69.9 H Lymph % (Auto) 20.7 L [place] % (Auto) 6.8 H Eos % (Auto) 2.2 Baso % (Auto) 0.4 Gran # 5.83 Lymph # 1.7 [place] # 0.6 Eos # 0.2 Baso # 0.03 pCO2 pO2 HCO3 ABG pH ABG Total CO2 ABG O2 Saturation ABG O2 Content ABG Base Excess ABG Hemoglobin ABG Carboxyhemoglobin POC ABG HHb (Measured) ABG Methemoglobin ABG O2 Capacity Hgb O2 Saturation FiO2 Sodium 141 Potassium 4.6 Chloride 97 L Carbon Dioxide 25 Anion Gap 24 H BUN 52 H Creatinine 8.5 H* Est GFR ( Amer) 6 Est GFR (Non-Af Amer) 5 POC Glucose (mg/dL) Random Glucose 267 H Calcium 9.2 Phosphorus 7.7 H Magnesium 2.5 H Total Bilirubin 0.7 AST 16 ALT 20 Alkaline Phosphatase 51 Lactate Dehydrogenase Total Creatine Kinase Troponin I 0.02 D Total Protein 6.8 Albumin 3.9 Globulin 2.9 Albumin/Globulin Ratio 1.3 11/02/16 18:47 WBC RBC Hgb Hct MCV MCH MCHC RDW Plt Count MPV Gran % Lymph % (Auto) [place] % (Auto) Eos % (Auto) Baso % (Auto) Gran # Lymph # [place] # Eos # Baso # pCO2 pO2 HCO3 ABG pH ABG Total CO2 ABG O2 Saturation ABG O2 Content ABG Base Excess ABG Hemoglobin ABG Carboxyhemoglobin POC ABG HHb (Measured) ABG Methemoglobin ABG O2 Capacity Hgb O2 Saturation FiO2 Sodium Potassium Chloride Carbon Dioxide Anion Gap BUN Creatinine Est GFR ( Amer) Est GFR (Non-Af Amer) POC Glucose (mg/dL) Random Glucose Calcium Phosphorus Magnesium Total Bilirubin AST ALT Alkaline Phosphatase Lactate Dehydrogenase 485 Total Creatine Kinase 65 Troponin I 0.02 Total Protein Albumin Globulin Albumin/Globulin Ratio - Imaging and Cardiology Chest x-ray Status: Image reviewed by me Additional comment: CXR - L mid to basal haziness; Assessment & Plan (1) Congestive heart failure (CHF) Assessment and Plan: Acute decompensated CHF w/ systolic dysfunction; no echo report availabe; high BNP is supportive; although patient's weight gains have been stable and she is close to her dry weight, may still be total body fluid overloaded secondary to diminishing muscle mass; received HD today with challenge to dry weight; -would obtain new echo -will do extra UF only session tomorrow; Status: Acute (2) ESRD (end stage renal disease) Assessment and Plan: Stable electrolyte status; challenging dry weight in setting of CHF exacerbation ; otherwise received routine HD earlier today; Status: Acute (3) Hypertensive CKD, ESRD on dialysis Assessment and Plan: BP significantly elevated despite having received HD earlier today; on amlodipine 10 mg and metoprolol 25 mg; will check outpatient records to confirm meds; continue same for now; will benefit form extra UF session tomorrow; Status: Acute (4) Chronic kidney disease-mineral and bone disorder Assessment and Plan: Phos markedly elevated (goal < 5.5); on sevelamer 1 tab tid w/ meals; unclear adherence to binders; continue same for now; Status: Acute (5) Anemia Assessment and Plan: Hgb at goal for ESRD (10-11 g); will continue with aranesp/procrit as outpatient per protocol; Status: Acute (6) Chest pain Assessment and Plan: Troponins negative; however, pain resolving with nitro is suggestive of active CAD; has significant prior CAD history and revascularization was ~3 yrs ago; agree with cardiology eval; Status: Acute
--- NOTE | 2016-11-02 20:44 | CP.PCM.CON ---
History of Present Illness - History of Present Illness History of Present Illness: Patient known case of CAD post CABG 4 Years ago. Known case of Ch.Renal Failure on Dialysis, HTN, Asthma, Hyperlipidemia admitted with SOB at [facility]. Patient also had sharp Chest Pain at lower Sternal Area for few minutes. patient states this pain was different than her cardiac pain which she felt in past at the time of NE. Review of Systems - Constitutional Constitutional: As Per HPI - EENT Additional comments: Normal. - Cardiovascular Additional comments: Shortness of Breath. Ferw minutes atypical Sharp Chest Pain. - Respiratory Respiratory: Dyspnea - Genitourinary Additional comments: No Abdominal Pain, nausea, vomiting. - Menstruation Menstruation: Amenorrhea - Neurological Additional comments: No Deficit. Past Patient History - Infectious Disease Hx of Infectious Diseases: None - Tetanus Immunizations Tetanus Immunization: Unknown - Past Medical History & Family History Past Medical History?: Yes - Past Social History Smoking Status: Former Smoker - CARDIAC Hx Cardiac Disorders: Yes Hx Angina: Yes Hx Cardia Arrhythmia: Yes Hx Circulatory Problems: No Hx Congestive Heart Failure: No Hx Heart Murmur: No Hx Heart Transplant: Yes Hx Hypercholesterolemia: No Hx Hypertension: Yes Hx Internal Defibrillator: No Hx Mitral Valve Prolapse: No Hx Pacemaker: No Hx Peripheral Edema: No Hx Peripheral Vascular Disease: No Other/Comment: CAD, CABG,HTN developed SOB and Few minutes Sharp Atypical Chest Pain. - PULMONARY Hx Respiratory Disorders: Yes Hx Chronic Obstructive Pulmonary Disease (COPD): Yes Other/Comment: H/O Asthma. Developed SOB. - NEUROLOGICAL HX Cerebrovascular Accident: Yes - HEENT Hx HEENT Problems: Yes Hx Deafness: Yes - RENAL Hx Chronic Kidney Disease: Yes Hx Dialysis: Yes - ENDOCRINE/METABOLIC Hx Endocrine Disorders: Yes Hx Diabetes Mellitus Type 2: Yes - HEMATOLOGICAL/ONCOLOGICAL Hx Blood Disorders: No - INTEGUMENTARY Hx Dermatological Problems: No - MUSCULOSKELETAL/RHEUMATOLOGICAL Hx Musculoskeletal Disorders: Yes Hx Back Pain: Yes Hx Falls: Yes Hx Osteoarthritis: Yes Hx Unsteady Gait: Yes - GASTROINTESTINAL Hx Gastrointestinal Disorders: No - GENITOURINARY/GYNECOLOGICAL Hx Genitourinary Disorders: No - PSYCHIATRIC Hx Substance Use: No - SURGICAL HISTORY Hx Surgeries: Yes Hx Cardiac Catheterization: Yes Hx Coronary Stent: No Hx Open Heart Surgery: Yes - ANESTHESIA Hx Anesthesia: Yes Hx Anesthesia Reactions: No Hx Malignant Hyperthermia: No Meds Allergies/Adverse Reactions: Allergies Allergy/AdvReac Type Severity Reaction Status Date / Time Penicillins Allergy hives Verified 11/01/16 21:23 - Medications Medications: Current Medications Amlodipine Besylate (Norvasc) 10 mg PO DAILY [facility] Last Admin: 11/02/16 10:43 Dose: Not Given Atorvastatin Calcium (Lipitor) 40 mg PO DIN [facility] Last Admin: 11/02/16 17:55 Dose: 40 mg Gabapentin (Neurontin) 100 mg PO BID [facility] PRN Reason: Protocol Last Admin: 11/02/16 17:55 Dose: Not Given Insulin Detemir (Levemir) 20 unit SC BID [facility] Last Admin: 11/02/16 17:55 Dose: 20 unit Insulin Human Lispro (Humalog Med) 0 units SC ACHS [facility] PRN Reason: Protocol Last Admin: 11/02/16 17:55 Dose: 3 units Levalbuterol HCl (Xopenex) 1.25 mg IH [id number] [facility] Last Admin: 11/02/16 19:41 Dose: 1.25 mg Metoprolol Tartrate (Lopressor) 25 mg PO DAILY [facility] Last Admin: 11/02/16 10:42 Dose: Not Given Sevelamer HCl (Renagel) 800 mg PO TID [facility] Last Admin: 11/02/16 17:54 Dose: 800 mg Physical Exam - Head Exam Head Exam: NORMOCEPHALIC - Eye Exam Additional comments: Conjunctia Slightly Pale. - Neck Exam Neck exam: Positive for: Normal Inspection - Respiratory Exam Additional comments: Few Rales. - Cardiovascular Exam Cardiovascular Exam: REGULAR RHYTHM, +S1, +S2 - GI/Abdominal Exam Additional comments: Soft. No Tenderness, Bowel Sounds Normal. Results - Vital Signs Recent Vital Signs: Last Vital Signs Temp 98.5 F 11/02/16 18:00 Pulse 72 11/02/16 18:00 Resp 18 11/02/16 18:00 BP 182/63 H 11/02/16 18:55 Pulse Ox 99 11/02/16 06:00 - Labs Result Diagrams: 11/02/16 11:15 11/02/16 11:15 Labs: Laboratory Results - last 24 hr 11/02/16 11/02/16 11/02/16 00:40 01:14 07:57 WBC RBC Hgb Hct MCV MCH MCHC RDW Plt Count MPV Gran % Lymph % (Auto) Haskell % (Auto) Eos % (Auto) Baso % (Auto) Gran # Lymph # Haskell # Eos # Baso # pCO2 42 pO2 50.0 L HCO3 27.9 ABG pH 7.43 ABG Total CO2 29.2 H ABG O2 Saturation 87.8 L ABG O2 Content 12.2 L ABG Base Excess 3.2 H ABG Hemoglobin 10.2 L ABG Carboxyhemoglobin 2.4 H POC ABG HHb (Measured) 11.8 H ABG Methemoglobin 0.9 ABG O2 Capacity 13.9 L Hgb O2 Saturation 85.0 L FiO2 21.0 Sodium Potassium Chloride Carbon Dioxide Anion Gap BUN Creatinine Est GFR ( Amer) Est GFR (Non-Af Amer) POC Glucose (mg/dL) 260 H 271 H Random Glucose Calcium Phosphorus Magnesium Total Bilirubin AST ALT Alkaline Phosphatase Lactate Dehydrogenase Total Creatine Kinase Troponin I Total Protein Albumin Globulin Albumin/Globulin Ratio 11/02/16 11/02/16 11/02/16 11:15 11:15 11:15 WBC 8.3 RBC 3.57 Hgb 10.4 L Hct 32.3 L MCV 90.5 MCH 29.1 MCHC 32.2 RDW 15.3 H Plt Count 158 MPV 10.8 Gran % 69.9 H Lymph % (Auto) 20.7 L Haskell % (Auto) 6.8 H Eos % (Auto) 2.2 Baso % (Auto) 0.4 Gran # 5.83 Lymph # 1.7 Haskell # 0.6 Eos # 0.2 Baso # 0.03 pCO2 pO2 HCO3 ABG pH ABG Total CO2 ABG O2 Saturation ABG O2 Content ABG Base Excess ABG Hemoglobin ABG Carboxyhemoglobin POC ABG HHb (Measured) ABG Methemoglobin ABG O2 Capacity Hgb O2 Saturation FiO2 Sodium 141 Potassium 4.6 Chloride 97 L Carbon Dioxide 25 Anion Gap 24 H BUN 52 H Creatinine 8.5 H* Est GFR ( Amer) 6 Est GFR (Non-Af Amer) 5 POC Glucose (mg/dL) Random Glucose 267 H Calcium 9.2 Phosphorus 7.7 H Magnesium 2.5 H Total Bilirubin 0.7 AST 16 ALT 20 Alkaline Phosphatase 51 Lactate Dehydrogenase Total Creatine Kinase Troponin I 0.02 D Total Protein 6.8 Albumin 3.9 Globulin 2.9 Albumin/Globulin Ratio 1.3 11/02/16 18:47 WBC RBC Hgb Hct MCV MCH MCHC RDW Plt Count MPV Gran % Lymph % (Auto) Haskell % (Auto) Eos % (Auto) Baso % (Auto) Gran # Lymph # Haskell # Eos # Baso # pCO2 pO2 HCO3 ABG pH ABG Total CO2 ABG O2 Saturation ABG O2 Content ABG Base Excess ABG Hemoglobin ABG Carboxyhemoglobin POC ABG HHb (Measured) ABG Methemoglobin ABG O2 Capacity Hgb O2 Saturation FiO2 Sodium Potassium Chloride Carbon Dioxide Anion Gap BUN Creatinine Est GFR ( Amer) Est GFR (Non-Af Amer) POC Glucose (mg/dL) Random Glucose Calcium Phosphorus Magnesium Total Bilirubin AST ALT Alkaline Phosphatase Lactate Dehydrogenase 485 Total Creatine Kinase 65 Troponin I 0.02 Total Protein Albumin Globulin Albumin/Globulin Ratio - EKG Data EKG shows normal: Sinus rhythm, ST-T waves Assessment & Plan - Assessment and Plan (Free Text) Assessment: Shortness of Breath, Mild CHF.. Renal Failure on Dialysis, Chest Pain Atypical Probably Non Cardiac, Hypertension, DM, Asthma..CAD,CABG. Plan: Continue Dialysis as Per Renal. Metoprolol, Amlodipine, Lipitor.Ecotrin daily.
== END 2016-11-02 22:00 | disposition home or self-care (01) ==
LOC: ED 21:22 → ERH 11-02 00:08 → 2RNO 11-02 01:49
PROVIDERS: ADMIT Internal Medicine; ATTEND Internal Medicine
DX: I13.0 Hypertensive heart and chronic kidney disease with heart failure and stage 1 through stage 4 chronic kidney disease, or unspecified chronic kidney disease (principal); I50.23 Acute on chronic systolic (congestive) heart failure; N18.6 End stage renal disease; E11.22 Type 2 diabetes mellitus with diabetic chronic kidney disease; J44.9 Chronic obstructive pulmonary disease, unspecified; D64.9 Anemia, unspecified; I25.10 Atherosclerotic heart disease of native coronary artery without angina pectoris; E78.5 Hyperlipidemia, unspecified; Z95.1 Presence of aortocoronary bypass graft; Z87.891 Personal history of nicotine dependence; Z79.4 Long term (current) use of insulin; Z88.0 Allergy status to penicillin; Z99.2 Dependence on renal dialysis
CPT/HCPCS: 36415; 71010; 80053; 82550; 82803; 82948; 83615; 83735; 83880; 84100; 84484; 85025; 87040; 93005; 94640; 99285; G0378

== ENCOUNTER 2016-11-22 13:58 | Emergency (ER) | payer MEDICARE, MEDICAID ==
[2016-11-22 13:59] VITALS: BMI 31.6
[2016-11-22 14:10] VITALS: TEMP 97.6
--- NOTE | 2016-11-22 14:22 | ED PDOC ---
Arrival/HPI - General Chief Complaint: Dizziness/Lightheaded Time Seen by Provider: 11/22/16 14:13 Historian: Patient - History of Present Illness Narrative History of Present Illness (Text): 11/22/16 14:18 66 year old female, with past medical history of diabetes, hypertension, CHF, CAD, CVA, COPD, esrd on dialysis Wednesday/Wednesday/Wednesday complains of dizziness/ lightheadedness. Patient states that she took oxycodone and afterwards her symptoms started. No complaints of nausea, vomiting. Compliant with hemodialysis treatment, states she is due tmr. Symptom Onset: Sudden Symptom Course: Unchanged Activities at Onset: Rest, Light Context: Home Past Medical History - Provider Review Nursing Documentation Reviewed: Yes - Infectious Disease Hx of Infectious Diseases: None - Tetanus Immunization Tetanus Immunization: Unknown - Reproductive Menopause: Yes - Cardiac Hx Cardiac Disorders: Yes (cabg, dvt) Hx Congestive Heart Failure: Yes Hx Hypertension: Yes - Pulmonary Hx Chronic Obstructive Pulmonary Disease (COPD): Yes - Neurological HX Cerebrovascular Accident: Yes - HEENT Hx HEENT Disorder: No - Renal Hx Renal Failure: Yes - Endocrine/Metabolic Hx Diabetes Mellitus Type 2: Yes - Hematological/Oncological Hx Blood Disorders: Yes Hx Anemia: Yes - Integumentary Other/Comment: cellulitis right heel, [id number] x4cm open heel wound foul smelling drainage, wound bed red surrounded by brown dry discolored skin covered with silvacell, dry 2cm x 2cm scab, multiple eccymotic areas. to abd + 3 edema to ble as per prior hx, dressing to left heel skin reddened, r foot discolored dry flakey skin - Musculoskeletal/Rheumatological Hx Falls: Yes - Gastrointestinal Hx Gastrointestinal Disorders: Yes Hx Gastroesophageal Reflux: Yes - Genitourinary/Gynecological Hx Genitourinary Disorders: Yes (oliguria) Hx Incontinence: Yes - Psychiatric Hx Psychophysiologic Disorder: No Hx Substance Use: No - Surgical History Hx Appendectomy: Yes Hx Cholecystectomy: Yes Hx Open Heart Surgery: Yes - Anesthesia Hx Anesthesia: Yes Hx Anesthesia Reactions: No Hx Malignant Hyperthermia: No - Suicidal Assessment Feels Threatened In Home Enviroment: No Family/Social History - Physician Review Nursing Documentation Reviewed: Yes Family/Social History: No Known Family HX Smoking Status: Former Smoker Hx Alcohol Use: No Hx Substance Use: No Hx Substance Use Treatment: No Allergies/Home Meds Allergies/Adverse Reactions: Allergies Penicillins Allergy (Verified 11/22/16 14:11) hives Home Medications: Home Meds Medication Instructions Recorded Confirmed Gabapentin [Neurontin] 100 mg PO BID 10/13/16 11/22/16 Insulin Detemir [Levemir] 20 units SC BID 10/13/16 11/22/16 Metoprolol Tartrate [Lopressor] 25 mg PO DAILY 10/13/16 11/22/16 Sevelamer Carbonate [Renvela] 800 mg PO TID 10/13/16 11/22/16 Albuterol 0.083% [Albuterol 0.083% 1 inh NEB PRN PRN 11/01/16 11/22/16 Inhal Raquel (2.5 mg/3 ml) UD] Rosuvastatin Calcium [Crestor] 10 mg PO DAILY 11/01/16 11/22/16 oxyCODONE [oxyCODONE Immediate 1 tab PO CONT 11/22/16 11/22/16 Release Tab] predniSONE [Prednisone] 10 mg PO DAILY 11/22/16 11/22/16 Physical Exam - Physical Exam Narrative Physical Exam (Text): 11/22/16 14:30 - Review of Systems Constitutional: Normal. absent: Fatigue, Weight Change, Fevers Eyes: Normal ENT: Normal Respiratory: Normal absent: SOB, Cough, Sputum Cardiovascular: Normal absent: Chest pain, Palpitations, Syncope Gastrointestinal: Normal absent: Abdominal pain, Diarrhea, Nausea, Vomiting Genitourinary: Normal. absent: Dysuria, Frequency, Hematuria Musculoskeletal: Normal. absent: Arthralgias, Back Pain, Neck Pain Skin: Normal Neurological: Dizziness/Lightheadedness absent: Focal Weakness Endocrine: Normal Hemo/Lymphatic: Normal Psychiatric: Normal - Physical exam Patient appears age appropriate, speaking full sentences without difficulty - Systems Exam Head: Present: Atraumatic, Normocephalic Pupils: Present: Pinpoint pupils Extraocular Muscles: Present: EOMI Conjunctiva: Present: Normal Mouth: Present: Moist Mucous Membranes Neck: Present: Normal Range of Motion. No: MIDLINE TENDERNESS, Paraspinal Tenderness Respiratory/Chest: Present: Clear to Auscultation, Good Air Exchange. No: Respiratory Distress, Accessory Muscle Use, Tachypnic Cardiovascular: Present: Positive Thrill, Positive Bruit, Positive Pulse No: Murmurs Abdomen: Present: Normal Bowel Sounds, No: Tenderness, Peritoneal Signs, Rebound, Guarding, Distention Back: Present: Normal Inspection. No: Midline Tenderness, Paraspinal Tenderness Upper Extremity: Present: Right upper extremity access No: Cyanosis, Edema Lower Extremity: Present: +pulses. b/l LEs with no ulcerations, no discoloration , no warmth, no tenderness, no assymetry, no edema (contrary to previous RN notes) Neurological: Present: GCS=15, Speech Normal, cranial nerves II through XII fully intact with no cerebellar abnormality, neuro-sensory fully intact. No focal neurological deficits. Skin: Present: Warm, Dry, Normal Color. No: Rashes Lymphatic: Present: OX3, NI, NC Psychiatric: Present: Alert, Oriented x 3, Normal Insight, Normal Concentration Vital Signs Reviewed: Yes Vital Signs Temp Pulse Resp BP Pulse Ox 11/22/16 15:55 60 18 127/68 96 11/22/16 14:09 97.6 F 60 20 129/60 100 11/22/16 14:07 67 19 121/54 L 97 Temperature: Afebrile Blood Pressure: Normal Pulse: Regular Respiratory Rate: Normal Appearance: Positive for: Well-Appearing Pain Distress: None Mental Status: Positive for: Alert and Oriented X 3, other (appears slightly drowsy) Medical Decision Making ED Course and Treatment: 11/22/16 14:20 Impression: 66 year old female with dizziness/lightheadeness after taking oxycodone at home. Physical exam shows pinpoint pupils. No focal neurological deficits on examination Plan: -- Labs -- Reassess and disposition Prior Visits: Notes and results from previous visits were reviewed. Patient was last seen in the emergency department on 11/02/2016 after being treated for acute decompensated CHF. Progress Notes: 11/22/16 16:22 on reeval, pt resting comfortably in bed 11/22/16 17:47 CT with no acute findings pt in no distress and with no focal neurological deficits pt is well appearing, states she feels much better and feels comfortable being dc'd home states she no longer feels dizzy or lightheaded Pt states she understands to return to the ER right away for new or worsening symptoms or for inability to f/u with PMD or specialist as instructed. Patient states that she fully agrees with and understands discharge instructions. States that she agrees with the plan and disposition. Verbalized and repeated discharge instructions and plan. I have given the patient opportunity to ask any additional questions. PROCEDURE: CT HEAD WITHOUT CONTRAST. HISTORY: dizzy COMPARISON: Head CT without contrast 10/02/2015. TECHNIQUE: Axial computed tomography images were obtained through the head/brain without intravenous contrast. Radiation dose: Total exam DLP = 1016 mGy-cm. This CT exam was performed using one or more of the following dose reduction techniques: Automated exposure control, adjustment of the mA and/or kV according to patient size, and/or use of iterative reconstruction technique. FINDINGS: HEMORRHAGE: No intracranial hemorrhage. BRAIN: Chronic lacunar infarcts are again seen the right basal ganglia with a small chronic lobar infarction identified in the right parietal lobe once again. Midline brain anatomy is stable and unremarkable. Diffuse cerebral atrophy and chronic microangiopathy are again identified. VENTRICLES: Unremarkable. No hydrocephalus. CALVARIUM: Unremarkable. PARANASAL SINUSES: Unremarkable as visualized. No significant inflammatory changes. MASTOID AIR CELLS: Limited left mastoiditis is identified. OTHER FINDINGS: None. IMPRESSION: Stable age related neuro degenerative change identified. No acute intracranial findings. Chronic lacune is are again seen the right basal ganglia as well as a small right parietal chronic lobar infarct. Follow-up CT or MRI may be performed as clinically warranted. - Lab Interpretations Lab Results: 11/22/16 14:28 11/22/16 14:28 Lab Results 11/22/16 14:28: Sodium 140, Potassium 5.4 H, Chloride 95 L, Carbon Dioxide 27, Anion Gap 23 H, BUN 57 H, Creatinine 7.6 H, Est GFR ( Amer) 6, Est GFR ( Non-Af Amer) 5, Random Glucose 260 H, Calcium 8.9, Total Bilirubin 0.7, AST 43 H , ALT 44, Alkaline Phosphatase 63, Total Protein 7.0, Albumin 4.0, Globulin 3.0 , Albumin/Globulin Ratio 1.3 11/22/16 14:28: WBC 10.8 D, RBC 3.71, Hgb 10.7 L, Hct 34.1 L, MCV 91.9, MCH 28.8, MCHC 31.4, RDW 15.5 H, Plt Count 155, MPV 10.6, Gran % 86.5 H, Lymph % ( Auto) 8.6 L, Howell % (Auto) 3.7, Eos % (Auto) 1.0 L, Baso % (Auto) 0.2, Gran # 9.32 H, Lymph # 0.9 L, Howell # 0.4, Eos # 0.1, Baso # 0.02 - RAD Interpretation Radiology Orders: 11/22/16 16:20 HEAD W/O CONTRAST [CT] Stat - Medication Orders Current Medication Orders: Discontinued Medications Acetaminophen (Tylenol 325mg Tab) 975 mg PO STAT STA Stop: 11/22/16 17:00 Last Admin: 11/22/16 17:20 Dose: 975 mg - Scribe Statement Tamiko Rivera Provider Scribe Attestation: All medical record entries made by the Scribe were at my direction and personally dictated by me. I have reviewed the chart and agree that the record accurately reflects my personal performance of the history, physical exam, medical decision making, and the department course for this patient. I have also personally directed, reviewed, and agree with the discharge instructions and disposition. Disposition/Present on Arrival - Present on Arrival Any Indicators Present on Arrival: No History of DVT/PE: No History of Uncontrolled Diabetes: Yes Urinary Catheter: No History of Decub. Ulcer: No History Surgical Site Infection Following: None - Disposition Have Diagnosis and Disposition been Completed?: Yes Diagnosis: Lightheaded Disposition: HOME/ ROUTINE Disposition Time: 17:54 Patient Plan: Discharge Condition: GOOD Discharge Instructions (ExitCare): Lightheadedness (ED) Additional Instructions: PLEASE RETURN TO THE EMERGENCY DEPARTMENT FOR NEW OR WORSENING SYMPTOMS. RETURN RIGHT AWAY IF YOU CANNOT FOLLOW UP WITH YOUR PRIMARY CARE DOCTOR, CLINIC, OR SPECIALIST IN 1-2 DAYS. Referrals: Henry Milton MD [Primary Care Provider] - Follow up with primary Forms: [employer] ([place]an)
[2016-11-22 15:04] LABS: BASO # 0.02 K/mm3 (0.0-2.0); BASO % 0.2 % (0.0-3.0); EOS # 0.1 (0.0-0.7); GRAN # 9.32 (1.4-6.5); GRAN % 86.5 % (50.0-68.0); HEMOGLOBIN 10.7 gm/dL (12.0-16.0); LYMPH # 0.9 (1.2-3.4); LYMPH % 8.6 % (22.0-35.0); MEAN CELL VOLUME 91.9 fL (80.0-105.0); MEAN CORPUSCULAR HEMOGLOBIN 28.8 pg (25.0-35.0); MEAN CORPUSCULAR HGB CONC 31.4 g/dl (31.0-37.0); MEAN PLATELET VOLUME 10.6 fl (7.0-11.0); MONO # 0.4 (0.1-0.6); MONO % 3.7 % (1.0-6.0); PLATELET COUNT 155 10^3/uL (120.0-450.0); RBC 3.71 10^6/uL (3.5-6.1); RED CELL DISTRIBUTION WIDTH 15.5 % (11.5-14.5); WHITE BLOOD COUNT 10.8 10^3/ul (4.5-11.0)
[2016-11-22 15:15] LABS: ALB/GLOB RATIO 1.3 (1.1-1.8); CALCIUM 8.9 mg/dL (8.4-10.5)
[2016-11-22 15:56] VITALS: RESP 18
--- NOTE | 2016-11-22 17:44 | CT ---
PROCEDURE: CT HEAD WITHOUT CONTRAST. HISTORY: dizzy COMPARISON: Head CT without contrast 10/02/2015. TECHNIQUE: Axial computed tomography images were obtained through the head/brain without intravenous contrast. Radiation dose: Total exam DLP = 1016 mGy-cm. This CT exam was performed using one or more of the following dose reduction techniques: Automated exposure control, adjustment of the mA and/or kV according to patient size, and/or use of iterative reconstruction technique. FINDINGS: HEMORRHAGE: No intracranial hemorrhage. BRAIN: Chronic lacunar infarcts are again seen the right basal ganglia with a small chronic lobar infarction identified in the right parietal lobe once again. Midline brain anatomy is stable and unremarkable. Diffuse cerebral atrophy and chronic microangiopathy are again identified. VENTRICLES: Unremarkable. No hydrocephalus. CALVARIUM: Unremarkable. PARANASAL SINUSES: Unremarkable as visualized. No significant inflammatory changes. MASTOID AIR CELLS: Limited left mastoiditis is identified. OTHER FINDINGS: None. IMPRESSION: Stable age related neuro degenerative change identified. No acute intracranial findings. Chronic lacune is are again seen the right basal ganglia as well as a small right parietal chronic lobar infarct. Follow-up CT or MRI may be performed as clinically warranted.
[2016-11-22 18:13] VITALS: BP 93/75; PULSE 65; O2SAT 98
--- NOTE | 2016-11-22 22:34 | CARD ---
APPROVED REPORT EKG Measurement Heart [id number] <Conclusion> Sinus rhythm with 1st degree AV block Possible Inferior infarct, age undetermined ST & T wave abnormality, consider lateral ischemia Abnormal ECG
== END 2016-11-22 18:25 | disposition home or self-care (01) ==
LOC: ED 13:58
DX: R42 Dizziness and giddiness (principal); I12.0 Hypertensive chronic kidney disease with stage 5 chronic kidney disease or end stage renal disease; E11.22 Type 2 diabetes mellitus with diabetic chronic kidney disease; N18.6 End stage renal disease; Z99.2 Dependence on renal dialysis; Z87.891 Personal history of nicotine dependence